=== PATIENT | male | born 1980 | race Asian ===

== ENCOUNTER 2017-07-20 18:27 | Emergency (ER) | payer OTHER ==
[2017-07-20 18:30] VITALS: BMI 32.5
[2017-07-20] MEDS ORDERED: SODIUM CHLORIDE 1,000 ML IV STA (18:49)
[2017-07-20] MEDS ORDERED: ONDANSETRON 4 MG/2 ML VIAL IVPB ONE (18:50)
--- NOTE | 2017-07-20 18:50 | PDOC ---
History of Present Illness - General History Source: Patient Exam Limitations: No Limitations - History of Present Illness Initial Comments: 07/20/17 19:13 The patient is a 37 year old male with no significant past medical history who presents to the ED complaining of 1 day of nausea, nonbloody nonbilious vomiting x 4, and nonbloody mucousy diarrhea x 4 today. No abdominal pain. He does report he has been experiencing diffuse abdominal bloating for the past several days. No fever or chills. No chest pain or shortness of breath. No headache or focal weakness. <Nicolasa Villagran - Last Filed: 07/20/17 19:13> <Mike Mckeon - Last Filed: 07/22/17 07:22> - General Chief Complaint: Vomiting/Diarrhea Stated Complaint: N/V/D Time Seen by Provider: 07/20/17 18:49 Past History <Nicolasa Villagran - Last Filed: 07/20/17 19:13> - Past Medical History COPD: No - Suicide/Smoking/Psychosocial Hx Smoking History: Never smoked Hx Alcohol Use: Yes Drug/Substance Use Hx: No Substance Use Type: Alcohol <Mike Mckeon - Last Filed: 07/22/17 07:22> - Past Medical History Allergies/Adverse Reactions: Allergies Allergy/AdvReac Type Severity Reaction Status Date / Time Penicillins Allergy Verified 07/20/17 18:28 Home Medications: Ambulatory Orders Ondansetron [Zofran Odt -] 4 mg SL BID PRN #10 od.tablet 07/20/17 Review of Systems - Review of Systems Able to Perform ROS?: Yes Comments:: 07/20/17 19:16 GENERAL/CONSTITUTIONAL: No fever or chills. No weakness. HEAD, EYES, EARS, NOSE AND THROAT: No change in vision. No ear pain or discharge. No sore throat. CARDIOVASCULAR: No chest pain or shortness of breath. RESPIRATORY: No cough, wheezing, or hemoptysis. GASTROINTESTINAL: +N/V/D. No abdominal pain. No constipation. +bloating. GENITOURINARY: No dysuria, frequency, or change in urination. MUSCULOSKELETAL: No joint or muscle swelling or pain. No neck or back pain. SKIN: No rash NEUROLOGIC: No headache, vertigo, loss of consciousness, or change in strength/ sensation. ENDOCRINE: No increased thirst. No abnormal weight change. HEMATOLOGIC/LYMPHATIC: No anemia, easy bleeding, or history of blood clots. ALLERGIC/IMMUNOLOGIC: No hives or skin allergy. <Nicolasa Villagran - Last Filed: 07/20/17 19:13> *Physical Exam - Vital Signs Last Vital Signs Temp Pulse Resp BP Pulse Ox 98.9 F 117 H 18 117/88 99 07/20/17 18:28 07/20/17 18:28 07/20/17 18:28 07/20/17 18:28 07/20/17 18:28 - Physical Exam Comments: 07/20/17 19:17 ADULT EXAM GENERAL: Awake, alert, and fully oriented, in no acute distress HEAD: No signs of trauma EYES: PERRLA, EOMI, sclera anicteric, conjunctiva clear ENT: Auricles normal inspection, hearing grossly normal, nares patent, oropharynx clear without exudates. Moist mucosa NECK: Normal ROM, supple, no lymphadenopathy, JVD, or masses LUNGS: Breath sounds equal, clear to auscultation bilaterally. No wheezes, and no crackles HEART: Regular rate and rhythm, normal S1 and S2, no murmurs, rubs or gallops ABDOMEN: Soft, nontender. Mild abdominal bloating. Hyperactive bowel sounds.No guarding, no rebound. No masses. EXTREMITIES: Normal range of motion, no edema. No clubbing or cyanosis. No cords, erythema, or tenderness NEUROLOGICAL: Cranial nerves II through XII grossly intact. Normal speech, normal gait SKIN: Warm, Dry, normal turgor, no rashes or lesions noted. <Nicolasa Villagran - Last Filed: 07/20/17 19:13> - Vital Signs Last Vital Signs Temp Pulse Resp BP Pulse Ox 0/0 07/20/17 18:28 <Mike Mckeon - Last Filed: 07/22/17 07:22> ED Treatment Course - LABORATORY CBC & Chemistry Diagram: 07/20/17 18:50 07/20/17 18:50 - Medications Given in the ED: ED Medications Discontinued Medications Generic Name Dose Route Start Last Admin Trade Name Freq PRN Reason Stop Dose Admin Ondansetron HCl 4 mg 07/20/17 18:50 07/20/17 18:50 Zofran Injection IVPB 07/20/17 18:51 4 mg ONCE ONE Administration <Nicolasa Villagran - Last Filed: 07/20/17 19:13> - LABORATORY CBC & Chemistry Diagram: 07/20/17 18:50 07/20/17 18:50 <Mike Mckeon - Last Filed: 07/22/17 07:22> Medical Decision Making - Medical Decision Making 07/22/17 07:21 Patient was symptoms of viral gastroenteritis for several hours, 4 episodes of vomiting, without blood, and watery diarrhea, with a small amount of mucous but also without blood. No abdominal pain. No fever. No suspicious food intake. Abdominal exam is completely benign. Patient is afebrile. Anti-emetic and intravenous fluids begun. Labwork pending. Signed out to Dr. Jett at 7 PM <Mike Mckeon - Last Filed: 07/22/17 07:22> *DC/Admit/Observation/Transfer - Attestations Scribe Attestion: 07/20/17 19:18 Documentation prepared by Nicolasa Villagran, acting as bilingual medical assistant for Mike Mckeon MD. <Nicolasa Villagran - Last Filed: 07/20/17 19:13> <Mike Mckeon - Last Filed: 07/22/17 07:22> Diagnosis at time of Disposition: Gastroenteritis - Discharge Dispostion Disposition: HOME Condition at time of disposition: Stable - Prescriptions Prescriptions: Ondansetron [Zofran Odt -] 4 mg SL BID PRN #10 od.tablet PRN Reason: Nausea - Patient Instructions Printed Discharge Instructions: Viral Gastroenteritis Additional Instructions: Clear liquids, advance diet as tolerated Zofran ODT 4 mg up to twice a day as needed for nausea Return to ER if you have persistent vomiting/worsening pain or high fever Follow-up with your doctor as discussed No work for the next 3 days - Post Discharge Activity Forms/Work/School Notes: Back to Work
[2017-07-20 18:54] VITALS: TEMP 98.9
[2017-07-20 19:09] LABS: BASO % 0.3 % (0-2.0); EOS % 2.5 % (0-4.5); HEMATOCRIT 45.6 % (35.4-49); HEMOGLOBIN 15.4 GM/dl (11.7-16.9); LYMPH % 11.9 % (8-40); MCHC 33.8 g/dl (32.0-35.9); MEAN CELL VOLUME 85.7 fl (80-96); MEAN PLT VOLUME 9.4 fl (7.5-11.1); MONO % 6.4 % (3.8-10.2); NEUT % 78.9 % (42.8-82.8); PLATELET COUNT 219 K/MM3 (134-434); RBC 5.32 M/mm3 (4.00-5.60); RDW 13.8 % (11.9-15.9); WHITE BLOOD COUNT 9.8 K/mm3 (4.0-10.8)
[2017-07-20 19:22] LABS: ALBUMIN 4.5 g/dl (3.5-5.0); ALK PHOS 87 U/L (32-92); ANION GAP 7 (8-16); BILIRUBIN,TOTAL 0.6 mg/dl (0.2-1.0); BLOOD UREA NITROGEN 12 mg/dl (7-18); CHLORIDE 103 mmol/L (98-107); CO2 24 mmol/L (22-28); CREATININE 0.8 mg/dl (0.6-1.3); GLUCOSE,RANDOM 110 mg/dl (74-106); POTASSIUM 4.1 mmol/L (3.5-5.1); SGOT/AST 32 U/L (10-42); SGPT/ALT 37 U/L (10-40); SODIUM 134 mmol/L (136-145); TOT PROT 7.7 g/dl (6.4-8.3)
--- NOTE | 2017-07-20 19:26 | PDOC ---
*Physical Exam - Vital Signs Last Vital Signs Temp Pulse Resp BP Pulse Ox 98.9 F 117 H 18 117/88 99 07/20/17 18:28 07/20/17 18:28 07/20/17 18:28 07/20/17 18:28 07/20/17 18:28 ED Treatment Course - LABORATORY CBC & Chemistry Diagram: 07/20/17 18:50 07/20/17 18:50 - ADDITIONAL ORDERS Additional order review: Laboratory Results 07/20/17 18:50 Sodium 134 L Potassium 4.1 Chloride 103 Carbon Dioxide 24 Anion Gap 7 L BUN 12 Creatinine 0.8 Creat Clearance w eGFR > 60 Random Glucose 110 H D Calcium 9.0 Total Bilirubin 0.6 AST 32 D ALT 37 D Alkaline Phosphatase 87 Total Protein 7.7 Albumin 4.5 07/20/17 18:50 RBC 5.32 MCV 85.7 MCHC 33.8 RDW 13.8 MPV 9.4 Neutrophils % 78.9 Lymphocytes % 11.9 Monocytes % 6.4 Eosinophils % 2.5 Basophils % 0.3 - Medications Given in the ED: ED Medications Discontinued Medications Generic Name Dose Route Start Last Admin Trade Name Freq PRN Reason Stop Dose Admin Ondansetron HCl 4 mg 07/20/17 18:50 07/20/17 18:50 Zofran Injection IVPB 07/20/17 18:51 4 mg ONCE ONE Administration Progress Note - Progress Note Progress Note: Care of this patient received from Dr. Teixeira. Patient is more comfortable after IV fluid administration and Zofran 4 mg IV. Laboratory evaluation shows no significant imbalance of electrolytes; CBC is essentially normal. Patient was discharged with description for Zofran ODT 4 mg be used up to twice a day as needed for nausea. He should not work for the next 3 days. Meanwhile , clear liquid diet to be maintained with cautious advancement to full diet. He should return if he has worsening pain , recurrent vomiting or develops pain/ fever *DC/Admit/Observation/Transfer Diagnosis at time of Disposition: Gastroenteritis - Discharge Dispostion Disposition: HOME Condition at time of disposition: Stable - Prescriptions Prescriptions: Ondansetron [Zofran Odt -] 4 mg SL BID PRN #10 od.tablet PRN Reason: Nausea - Referrals - Patient Instructions Printed Discharge Instructions: Viral Gastroenteritis Additional Instructions: Clear liquids, advance diet as tolerated Zofran ODT 4 mg up to twice a day as needed for nausea Return to ER if you have persistent vomiting/worsening pain or high fever Follow-up with your doctor as discussed No work for the next 3 days - Post Discharge Activity Forms/Work/School Notes: Back to Work
[2017-07-20] MEDS ORDERED: ONDANSETRON 4 MG/2 ML VIAL ONE (19:31)
[2017-07-20 20:35] LABS: LIPASE 121 U/L (73-393)
[2017-07-20 20:42] VITALS: BP 133/80; PULSE 88
== END 2017-07-20 20:48 | disposition home or self-care (01) ==
LOC: FER 18:27
PROC: 3E033GC Introduction of Other Therapeutic Substance into Peripheral Vein, Percutaneous Approach (ICD-10-PCS; principal; 2017-07-20)
PROC: 3E0337Z Introduction of Electrolytic and Water Balance Substance into Peripheral Vein, Percutaneous Approach (ICD-10-PCS; 2017-07-20)
DX: K52.9 Noninfective gastroenteritis and colitis, unspecified (principal)
CPT/HCPCS: 36415; 80053; 83690; 85025; 99282-25

== ENCOUNTER 2018-12-25 17:21 | Emergency (ER) | payer OTHER ==
[2018-12-25 17:35] VITALS: BP 130/82; PULSE 63; TEMP 98.3; BMI 31.8
[2018-12-25] MEDS ORDERED: EMTRICITABINE 200MG/TENOFOVIR 300MG PO ONE (17:54)
[2018-12-25] MEDS ORDERED: TETANUS AND DIPHTHERIA TOXOID 0.5 ML DISP.SYRIN IM ONE ×2 (17:54→18:21)
[2018-12-25] MEDS ORDERED: RALTEGRAVIR POTASSIUM 400 MG TAB PO ONE (17:54)
--- NOTE | 2018-12-25 18:11 | PDOC ---
History of Present Illness - General Chief Complaint: Blood/Body Fluid Exposure [facility]JR Stated Complaint: needle stick injury Time Seen by Provider: 12/25/18 17:54 - History of Present Illness Initial Comments: 12/25/18 18:05 38yo M with no PMH or PSH presents to the ED after he was stuck by a solid neurotransmitter lead on a post-op patient. 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 Pt states the source patient was agitated and swung his arm and that's when he was stuck to the palmar base of his right 5th finger. It went through his glove and he was able to express blood from the wound. Denies other injuries. Source pt has unknown HIV status, but has hx of substance abuse. Pt was in his usogh prior, no recent fevers, chills, cp, sob, headache, abd pain, N/V/D, LE edema. Pt is vaccinated against HBV. Past History - Past Medical History Allergies/Adverse Reactions: Allergies Allergy/AdvReac Type Severity Reaction Status Date / Time Penicillins Allergy Verified 12/25/18 17:24 Home Medications: Ambulatory Orders NK [No Known Home Medication] 12/25/18 COPD: No - Suicide/Smoking/Psychosocial Hx Smoking History: Never smoked Hx Alcohol Use: No Drug/Substance Use Hx: No Substance Use Type: Alcohol Review of Systems - Review of Systems Comments:: 12/25/18 18:11 GENERAL/CONSTITUTIONAL: No fever or chills. No weakness. HEAD, EYES, EARS, NOSE AND THROAT: No change in vision. No ear pain or discharge. No sore throat. GASTROINTESTINAL: No nausea, vomiting, diarrhea or constipation. GENITOURINARY: No dysuria, frequency, or change in urination. CARDIOVASCULAR: No chest pain or shortness of breath. RESPIRATORY: No cough, wheezing, or hemoptysis. MUSCULOSKELETAL: No joint or muscle swelling or pain. No neck or back pain. SKIN: No rash. +needle stick NEUROLOGIC: No headache, vertigo, loss of consciousness, or change in strength/ sensation. ENDOCRINE: No increased thirst. No abnormal weight change. HEMATOLOGIC/LYMPHATIC: No anemia, easy bleeding, or history of blood clots. ALLERGIC/IMMUNOLOGIC: No hives or skin allergy. *Physical Exam - Vital Signs Last Vital Signs Temp Pulse Resp BP Pulse Ox 98.3 F 63 18 130/82 100 12/25/18 17:23 12/25/18 17:23 12/25/18 17:23 12/25/18 17:23 12/25/18 17:23 - Physical Exam Comments: 12/25/18 18:11 GENERAL: Awake, alert, and fully oriented, in no acute distress EYES: EOMI, sclera anicteric, conjunctiva clear LUNGS: Breath sounds equal, clear to auscultation bilaterally. No wheezes, and no crackles HEART: Regular rate and rhythm, normal S1 and S2, no murmurs, rubs or gallops ABDOMEN: Soft, nontender, normoactive bowel sounds. No guarding, no rebound. No masses EXTREMITIES: Normal range of motion, WWP NEUROLOGICAL: Normal speech, cranial nerves intact, normal gait SKIN: Base of R 5th palmar digit with superficial hemostatic defect Medical Decision Making - Medical Decision Making 12/25/18 18:14 38yo M presents after percutaneous exposure with neurotransmitter lead. Unknown if lead had blood on it Source pt has unknwon HIV status, but he has consented to testing Given hx of substance abuse, and based on [place]'s body fluid exposure algorithm, pt is candidate for basic PEP regimen Employee exposure order set initiated, pt amenable to starting PEP *DC/Admit/Observation/Transfer Diagnosis at time of Disposition: Needle stick injury with contaminated needle, History of exposure to potentially hazardous body fluids, presenting hazards to health, Wound of upper extremity - Discharge Dispostion Disposition: HOME Condition at time of disposition: Stable - Referrals - Patient Instructions Printed Discharge Instructions: How to Handle Body Fluid Exposure -- Healthcare Worker Additional Instructions: Follow up at occupational health within 24 hours Continue to take the prophylaxis medications as prescribed Return to the emergency department if you have any new, worsening, or concerning symptoms - Attestations Physician Attestion: 12/25/18 18:21 I, Dr. Matias Viramontes MD, attest that this document has been prepared under my direction and personally reviewed by me in its entirety. I further attest, that it accurately reflects all work, treatment, procedures and medical decision -making performed by me.
[2018-12-25] MEDS ORDERED: HIV POST EXPOSURE PROPHYLAXIS KIT PO ONE (18:20)
[2018-12-25 18:30] LABS: BASO % 0.6 % (0-2.0); EOS % 3.7 % (0-4.5); HEMATOCRIT 44.8 % (35.4-49); HEMOGLOBIN 14.8 GM/dl (11.7-16.9); LYMPH % 34.5 % (8-40); MCH 29.3 pg (25.7-33.7); MEAN CELL VOLUME 88.9 fl (80-96); MEAN PLT VOLUME 9.8 fl (7.5-11.1); NEUT % 55.2 % (42.8-82.8); PLATELET COUNT 203 K/MM3 (134-434); RBC 5.04 M/mm3 (4.00-5.60); RDW 13.4 % (11.9-15.9); WHITE BLOOD COUNT 8.1 K/mm3 (4.0-10.8)
[2018-12-25] MEDS ORDERED: DIPHTH,PERTUSS(ACELL),TET 0.5 ML DISP.SYRIN IM ONE ×2 (18:39→19:00)
[2018-12-25 18:45] LABS: ALBUMIN 4.7 g/dl (3.4-5.0); BILIRUBIN,TOTAL 0.7 mg/dl (0.2-1); CREATININE 0.8 mg/dl (0.55-1.3); PHOSPHOROUS 3.9 mg/dl (2.5-4.9); POTASSIUM 3.9 mmol/L (3.5-5.1); TOT PROT 7.7 g/dl (6.4-8.2); URIC ACID 7.1 mg/dl (2.6-7.2)
[2018-12-25] MEDS ORDERED: DIPHTH,PERTUSS(ACELL),TET PED 0.5 ML VIAL IM ONE (19:00)
== END 2018-12-25 19:01 | disposition home or self-care (01) ==
LOC: FER 17:21
PROC: 3E0234Z Introduction of Serum, Toxoid and Vaccine into Muscle, Percutaneous Approach (ICD-10-PCS; principal; 2018-12-25)
DX: Z77.21 Contact with and (suspected) exposure to potentially hazardous body fluids (principal); W46.1XXA Contact with contaminated hypodermic needle, initial encounter; Y93.89 Activity, other specified; Y92.239 Unspecified place in hospital as the place of occurrence of the external cause; Y99.0 Civilian activity done for income or pay
CPT/HCPCS: 36415; 80053; 82465; 82977; 83615; 84100; 84478; 84550; 85025; 86317; 86704; 86706; 86803; 87340; 87389; 90715; 99282-25